=== PATIENT | male | born 1985 | race Caucasian/White ===

== ENCOUNTER 2023-07-13 22:08 | Emergency (ER) | payer SELFPAY ==
[~2023-07-13] VITALS: Ht 167.6 cm; Wt 107.0 kg
[2023-07-13 22:14] VITALS: TEMP 97.5; O2SAT 98
[2023-07-13] MEDS: ONDANSETRON HCL 4MG/2ML INJ IV STA (22:51)
[2023-07-13] MEDS: SODIUM CHLORIDE 0.9% 1,000 ML IV ONE (22:51)
[2023-07-13 23:15] LABS: CHLORIDE 100 mEq/L (98-107); POTASSIUM 3.4 mEq/L (3.5-5.1); SODIUM 131 mEq/L (136-145)
[2023-07-13 23:16] LABS: CALCIUM 8.2 mg/dL (8.7-10.4); CARBON DIOXIDE 24 mEq/L (21-32)
[2023-07-13 23:19] LABS: BASOPHILS % 0.2 % (0.0-2.0); EOSINOPHILS % 0.1 % (0.0-5.0); HEMATOCRIT. 40.9 % (42.0-52.0); HEMOGLOBIN. 14.2 g/dL (14.0-18.0); INR 1.1; MEAN CORPUSCULAR HEMOGLOBIN 30.1 pg (28.0-32.0); MEAN CORPUSCULAR HGB CONC 34.6 g/dL (31.0-37.0); MEAN CORPUSCULAR VOLUME 86.9 fL (80.0-94.0); MEAN PLATELET VOLUME 8.9 fl (7.4-10.4); MONOCYTES % 9.2 % (2.0-8.0); NEUTROPHILS % 75.5 % (40.0-76.0); PLATELET 268 x1000/uL (130-400); PROTHROMBIN TIME 11.7 sec (9.6-11.0); RED CELL DISTRIBUTION WIDTH 13.3 % (11.6-14.6); WHITE BLOOD COUNT 12.3 x1000/uL (4.5-11.0)
[2023-07-13 23:21] LABS: GLUCOSE 156 mg/dL (70-105); UREA NITROGEN BLOOD 29 mg/dL (9-23)
[2023-07-13 23:41] LABS: ETHANOL BLOOD < 10 mg/dL (<10)
[2023-07-14] MEDS: SODIUM CHLORIDE 0.9% 1,000 ML IV ONE (00:20)
[2023-07-14] MEDS: POTASSIUM CHLORIDE 20MEQ TABLET SR PO SCH (00:20)
[2023-07-14 01:01] LABS: CLARITY URINE CLEAR (CLEAR); COLOR URINE YELLOW (YELLOW); GLUCOSE URINE NEGATIVE (NEGATIVE); KETONES URINE 1+ (NEGATIVE); LEUKOCYTE ESTERASE URINE NEGATIVE (NEGATIVE); NITRITE URINE NEGATIVE (NEGATIVE); OCCULT BLOOD URINE NEGATIVE (NEGATIVE); PH URINE 6.5 (4.5-8.0); PROTEIN URINE NEGATIVE (NEGATIVE); SPECIFIC GRAVITY URINE 1.021 (1.005-1.030); UROBILINOGEN URINE 0.2 E.U./dL (0.2-1.0)
[2023-07-14 01:08] LABS: *AMPHETAMINES SCREEN URINE PRESUMPTIVE POSITIVE (NEGATIVE)
[2023-07-14 01:09] LABS: *BARBITURATES SCREEN URINE NEGATIVE (NEGATIVE); *BENZODIAZEPINES SCREEN URINE NEGATIVE (NEGATIVE); *COCAINE SCREEN URINE NEGATIVE (NEGATIVE); CANNABINOID URINE SCREEN NEGATIVE (NEGATIVE); ECSTASY MDMA SCREEN URINE NEGATIVE (NEGATIVE); METHADONE URINE SCREEN NEGATIVE (NEGATIVE); OPIATES URINE SCREEN NEGATIVE (NEGATIVE); PHENCYCLIDINE URINE SCREEN NEGATIVE (NEGATIVE)
[2023-07-14 02:59] VITALS: BP 107/67; PULSE 115; RESP 12
== END 2023-07-14 02:59 | disposition home or self-care (01) ==
LOC: ER 22:08
DX: F15.10 Other stimulant abuse, uncomplicated (principal); R00.0 Tachycardia, unspecified; R10.9 Unspecified abdominal pain
CPT/HCPCS: 80048; 80320; 83605; 83690; 85025; 85610; 36415; 71045; 96361 ×2; 96374; 99284; 80305; 81003; 93005; J2405; J7030; G0480